=== PATIENT | male | born 1985 | race Caucasian/White ===

== ENCOUNTER 2021-01-20 14:46 | Emergency (ER) | payer SELFPAY ==
--- NOTE | ~2021-01-20 | XR_ITS ---
EXAMINATION: XR FINGER, RIGHT CLINICAL INFORMATION: Status post laceration of the thumb. COMPARISON: None TECHNIQUE: Three views of the right thumb. FINDINGS: Soft tissue injury in the form of linear soft tissue defect containing air is identified at the level of the palmar surface proximal phalanx of the right thumb. No evidence of any underlying osseous or articular abnormalities or radiopaque foreign bodies present. Incidental note is made of deformity of the fifth digit, most consistent with old posttraumatic change. XR/XR finger RT min 2V IMPRESSION: Soft tissue injury involving the right thumb without any underlying osseous or articular abnormalities. No radiopaque foreign bodies. Old likely posttraumatic changes involving the fifth digit.
[2021-01-20 14:52] VITALS: BP 129/75; PULSE 81; RESP 18; TEMP 36.8; O2SAT 97; BMI 27.1
--- NOTE | 2021-01-20 15:52 | ED.WOUNDLAC ---
HPI - Wound/Laceration General Chief Complaint: Wound/Laceration Stated Complaint: finger lac Time Seen by Provider: 01/20/21 15:06 Source: patient and family Mode of arrival: ambulatory Limitations: no limitations History of Present Illness HPI narrative: 35-year-old male presenting to the ED with a laceration to his right thumb at the proximal aspect when he was cutting an apple 30 minutes prior to arrival. He reports he is up-to-date on tetanus. He denies any paresthesias or any other symptoms complaints or concerns at this time. 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) Extremity Location: left: hand (Thumb at the proximal aspect) Place: home Patient tetanus UTD: Yes Context: accidental Associated symptoms: unable to move injured part Related Data Home Medications Medication Instructions Recorded Confirmed clotrimazole-betamethasone 1 TOPICAL 01/16/20 %-0.05 % lotion fluocinonide 0.05 % topical cream 1 applic TOPICAL BID 01/16/20 prednisone 10 mg tablet mg PO 01/16/20 Previous Rx's Medication Instructions Recorded cephalexin 500 mg capsule 500 mg PO Q6H 10 Days #40 cap 01/20/21 Allergies Allergy/AdvReac Type Severity Reaction Status Date / Time No Known Allergies Allergy Verified 01/16/20 08:55 [No Known Allergies*] Review of Systems Review of Systems: Constitutional : No Fever, No Chills, Cardiovascular : No Chest Pain, No SOB Respiratory : No Dyspnea Gastrointestinal : No abdominal pain Musculoskeletal : No Joint Swelling Skin : positive skin laceration, No Foreign bodies, No rash, No surrounding erythema Neuro : No Weakness, No Numbness/tingling Psych : No SI/HI/thoughts of self injury Yes all other systems are reviewed and are negative [facility] Past Medical History Attestation statement: The following information was validated with the patient. Surgical History No pertinent past surgical history Family History Family History Father No problems noted. Mother No problems noted. Social History Social History Advance Directives: No Advance Directives Information Provided: No Physical Exam Vital Signs: Vital Signs: Last Vital Signs Temp 98.2 F 01/20/21 14:52 Pulse 81 01/20/21 14:52 Resp 18 01/20/21 14:52 BP 129/75 01/20/21 14:52 Pulse Ox 97 01/20/21 14:52 Body Mass Index 27.1 vital signs have been reviewed as normal and appeared to be correct. Blood pressure normal Heart rate normal. Respiration rate normal. Temperature normal. Oxygen saturation normal. Appearance: Alert. Oriented X3. No acute distress. Head: Normal external exam. Normocephalic. Atraumatic. Eyes: PERRLA. EOMI. Conjunctiva and sclera normal. Eyelids normal. ENT: Pharynx normal. Uvula midline. Moist mucous membranes. Neck: Normal inspection. Neck supple. FROM. CVS: Normal heart rate and rhythm. Respiratory: No respiratory distress. Painless inspiration. Skin: Skin warm and dry. Normal skin color. Normal skin turgor. Patient with a intermediate laceration noted to left hand thumb at the proximal aspect. No additional rashes/lesions/lacerations noted. Extremities: Patient unable to flex the distal aspect of the thumb therefore I believe the patient has a tendon laceration. No obvious deformities noted. No bony tenderness is noted. Otherwise all other Extremities exhibit normal range of motion and nontender. Neuro: Oriented X 3. No motor deficit. No sensory deficit. Reflexes normal. Normal steady gait. No focal neuro deficits noted. Vascular: + radial pulses. Normal cap refill. No cyanosis noted to upper extremity nails. Course Course Course Narrative: 35-year-old male presenting to the ED with a laceration to his right thumb at the proximal aspect when he was cutting an apple 30 minutes prior to arrival. He reports he is up-to-date on tetanus. He denies any paresthesias or any other symptoms complaints or concerns at this time. On exam patient has a intermediate 1 cm laceration to the proximal aspect of the left thumb unable to move the distal aspect of the left thumb therefore I believe the patient has attendant laceration. Otherwise no bony tenderness or foreign bodies noted. No obvious deformities noted. Will obtain x-ray and place loose sutures and consult with Orthopedics so the patient can follow-up with orthopedic. Patient understands agrees with this plan. Reevaluation(s) Reevaluation #1: - patient is now status post laceration repair with [address] Patient tolerated procedure well. No complications. I consulted with orthopedic ELIZABETH Olivo and she reported to clean and suture with a right could and to have him follow up with her in the office tomorrow therefore explained this to the patient he reports he will follow up tomorrow with orthopedic and he will return if any new or worsening symptoms. Patient understands agrees with this plan. Time: 16:58 MDM - Wound/Laceration Medical Records Attestation: I reviewed the patient's medical records. Imaging Data Left thumb x-ray: Attestation: I personally reviewed and interpreted this imaging study as follows: Radiologist's impression: FINDINGS: Soft tissue injury in the form of linear soft tissue defect containing air is identified at the level of the palmar surface proximal phalanx of the right thumb. No evidence of any underlying osseous or articular abnormalities or radiopaque foreign bodies present. Incidental note is made of deformity of the fifth digit, most consistent with old posttraumatic change. XR/XR finger RT min 2V IMPRESSION: Soft tissue injury involving the right thumb without any underlying osseous or articular abnormalities. No radiopaque foreign bodies. Old likely posttraumatic changes involving the fifth digit. Discharge Plan Discharge Clinical Impression: Laceration, Laceration of thumb, left, with tendon involvement Patient Disposition: Home, Self-Care Instructions: Finger Laceration (ED), Tendon Laceration (ED) Prescriptions: New cephalexin 500 mg capsule 500 mg PO Q6H 10 Days Qty: 40 RF: 0 Referrals: Latrice Jamison MD [Physician] - 1 day (You should follow up tomorrow please call tomorrow morning) Caryn Vang NP [Primary Care Provider] - 2 days Stand Alone Forms: Work/School Release Print Language: Upper Sorbian
[2021-01-20] MEDS: Lidocaine HCl 1 % MPF 5 ML VIAL SUBCUT (17:19)
== END 2021-01-20 17:23 | disposition home or self-care (01) ==
PROVIDERS: Emergency Provider Emergency Medicine; PCP Hospitalist
DX: S61.011A Laceration without foreign body of right thumb without damage to nail, initial encounter (principal); M67.843 Other specified disorders of tendon, right hand; W26.0XXA Contact with knife, initial encounter; Y93.89 Activity, other specified; Y92.9 Unspecified place or not applicable; Y99.9 Unspecified external cause status
CPT/HCPCS: 12001; 73140; 99283; 99284

== ENCOUNTER → 2021-01-21 13:09 | Outpatient (BNVA) | payer SELFPAY | PROVIDERS: Visit Provider Physician Assistant | DX: S61.011A Laceration without foreign body of right thumb without damage to nail, initial encounter (principal) | CPT/HCPCS: 99202 ==

== ENCOUNTER 2021-01-24 08:25 | Day surgery (SDC) | payer SELFPAY ==
--- NOTE | 2021-01-23 15:02 | HO.ANESPROP2 ---
Documented by User: Mora Morocho NP 02/05/21 14:31 HPI - Anesthesia Eval Consult details Narrative: 35yo M for Right Flexor Tendon Repair of thumb PMFSH Active Problems Active Problems: All Active Problems (Updated 01/21/21 @ 14:02 by Pallavi Chisholm PA-C) Laceration of thumb, right, with tendon involvement (Acute) Infertility counseling (Acute) Past Medical History Medical History No pertinent past medical history Family History Family History Father No problems noted. Mother No problems noted. 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 Meds Allergies Allergy/AdvReac Type Severity Reaction Status Date / Time No Known Allergies Allergy Verified 01/21/21 13:16 [No Known Allergies*] Home Medications Medication Instructions Recorded Confirmed Last Taken Type clotrimazole-betamethasone 1 TOPICAL 01/16/20 Unknown History %-0.05 % lotion fluocinonide 0.05 % topical cream 1 applic TOPICAL BID 01/16/20 Unknown History prednisone 10 mg tablet mg PO 01/16/20 Unknown History Exam Exam Date and Time: January 23, 2021 1502 Assessment and Plan Assessment Anesthesia Assessment: Chart Reviewed Documented by User: Donnie Dewitt MD 02/15/21 11:55 PMFSH Past Medical History Medical History No pertinent past medical history Family History Family History Father No problems noted. Mother No problems noted. 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 Meds Allergies Allergy/AdvReac Type Severity Reaction Status Date / Time No Known Allergies Allergy Verified 01/21/21 13:16 [No Known Allergies*] Home Medications Medication Instructions Recorded Confirmed Last Taken Type clotrimazole-betamethasone 1 TOPICAL 01/16/20 Unknown History %-0.05 % lotion fluocinonide 0.05 % topical cream 1 applic TOPICAL BID 01/16/20 Unknown History prednisone 10 mg tablet mg PO 01/16/20 Unknown History Assessment and Plan Assessment Anesthesia Assessment: Anesthesia Plan Discussed Final Anesthetic Review Family History of Problems with Anesthesia: No History of Problems with Anesthesia: No NPO: Yes ASA Class: I Final Preanesthetic Review: No Changes in Pt Med Stat, Meds/Allgs Chart Reviewed, Consent Obtained/Reviewed and Anes Risks/Benef Reviewed Patient Risk: Low Procedure Risk: Low Anesthetic Plan Anesthetic Plan: GA Disposition: Standard PACU
[2021-01-24] VITALS (8 sets, daily range): BP systolic 117–135; BP diastolic 64–88; PULSE 59–85; RESP 16–20; TEMP 36.2–37.1; O2SAT 95–98; BMI 27.1
--- NOTE | 2021-01-24 08:52 | MHC.SHP ---
Pre-Procedural Eval Section A Date of Service: 01/24/21 The patient is an INPATIENT: No Changes since office visit: No Cold of Flu in the past 2 weeks, No New Medical Problems, No Changes in Medication and No Patient answered all questions The History & Physical has been completed within 30 days and I have reviewed it.: Yes Section B Chief Complaint: laceration of flexor tendon, right thumb Allergies: Allergies Allergy/AdvReac Type Severity Reaction Status Date / Time No Known Allergies Allergy Verified 01/21/21 13:16 [No Known Allergies*] Exam Exam Comment: Right thumb laceration and FPL tendon laceration Plan I have reviewed the history and physical and performed a pertinent physical examination on my patient. No changes have occurred unless specified. Clarification: Right Thumb flexor tendon repair
--- NOTE | 2021-01-24 08:53 | P.OP_ITS ---
Operative Note Operative Note Date of Service: 01/24/21 Narrative: Operative Note Narrative: Preop diagnosis: 1.. Right thumb flexor pollicis longus tendon laceration Postop diagnosis: Same Procedure: 1. Right thumb flexor pollicis longus tendon repair Surgeon: Latrice Jamison MD Anesthesia: Mac plus regional block Findings: FPL tendon laceration just proximal to the oblique taylor. The proximal and of the FPL tendon was retracted to beneath the thenar mass. Implants: none Tourniquet time: Seventy minutes EBL: 5.0 ml Specimen: none Drains: None Complications: None Disposition: Brought to the recovery room in stable condition Plan: Follow-up in 10-14 days for wound check, suture removal and placement in a dorsal blocking splint. Same day appointment with OT hand therapy to be made a custom thermoplastic dorsal blocking splint, and to begin flexor tendon protocol. Indications: The patient is a 35 year old man with a right thumb FPL tendon lacerations sustained in the kitchen. . The risks and benefits of operative t reatment, including but not limited to risk of damage to blood vessels, nerves, tendons, infection, recurrence, persistent pain or numbness, incomplete resolution of preoperative symptoms, or need for further surgery were discussed with the patient and they wished to proceed with surgery. Procedure: Once consent was obtained patient was brought back to the operating suite and placed in the operating table in a supine position. . Perioperative antibiotics and anesthesia was administered by the anesthesia team. A tourniquet was applied to the proximal aspect of the Right upper extremity and the limb was prepped and draped in a standard surgical fashion. The limb was elevated exsanguinated with Esmarch bandage and the tourniquet inflated to 250 mm of mercury for a total tourniquet time of 70 minutes. the sutures were removed from the transverse laceration just proximal to the IP joint of the patient's right thumb. The ulnar aspect of the laceration was extended distally to the IP joint and then obliquely over the distal phalanx. From the radial aspect of the laceration I then extended proximally over the A1 taylor using a Rhea type incision. I then dissected down to the level of the flexor tendon sheath using tenotomy scissors. Care was taken to protect the neurovascular structures. The laceration through the tendon sheath was noted proximal to the oblique taylor. The distal aspect of the FPL tendon was noted distal to the oblique taylor. Proximally, the proximal end of the FPL tendon was withdrawn from the FPL tendon sheath within the thenar mass using a small hemostat. It was then drawn distally. I then placed some 4-0 nylon suture in this proximal and of the tendon. I then used a loop of 4-0 nylon suture that had been withdrawn 1st beneath the FPL tendon sheath just distal to the A1 taylor and jay the FPL tendonthrough this portion of the tendon sheath. Similarly the FPL tendon was then drawn distally beneath the oblique taylor. This was held in place with a single 25 gauge needle. I then repaired our FPL tendon laceration using 3-0 Ethibond suture and a 4 core suture technique. This was then reinforced with some 6 0 Prolene suture. I was very satisfied with our FPL tendon repair. At this point the tourniquet was deflated and hemostasis obtained with a brief period of local pressure. The wound was copiously irrigated with normal saline. The skin edges were reapproximated with 5-0 nylon suture. The wound was infiltrated with some 1% lidocaine with epinephrine for postop pain control and a sterile dressing and Dorsal thumb spica splint were applied holding the wrist and thumb in some flexion. The patient appears to have tolerated the procedure well and with no complications. All digits were well vascularized c onclusion of the case.
[2021-01-24] MEDS: Lactated Ringers 1,000 ML 100 ML IVCONT (09:09)
[2021-01-24] MEDS: ceFAZolin Sodium/Dextrose,Iso 2 GM/50 ML PIGGYBACK IV (10:24)
== END 2021-01-24 14:25 | disposition home or self-care (01) ==
PROVIDERS: PCP Hospitalist; Visit Provider Orthopaedic Surgery
PROC: (CPT 26350; principal; 2021-01-24 10:00)
DX: S56.021A Laceration of flexor muscle, fascia and tendon of right thumb at forearm level, initial encounter (principal); W26.0XXA Contact with knife, initial encounter; Y93.G9 Activity, other involving cooking and grilling; Y92.9 Unspecified place or not applicable; Y99.8 Other external cause status
CPT/HCPCS: 26350; J0690; J1100; J1170; J2250; J2405; J3010

== ENCOUNTER → 2021-02-05 08:45 | Outpatient (BNVA) | payer OTHER, SELFPAY | PROVIDERS: PCP Hospitalist; Visit Provider Orthopaedic Surgery | DX: S61.011D Laceration without foreign body of right thumb without damage to nail, subsequent encounter (principal) | CPT/HCPCS: 99212 ==

== ENCOUNTER 2021-02-27 10:00 | Outpatient (RCR) | payer OTHER, SELFPAY | END 2021-02-27 14:00 | disposition home or self-care (01) | LOC: HO.OT 10:00 | PROVIDERS: Visit Provider Orthopaedic Surgery | DX: S61.011D Laceration without foreign body of right thumb without damage to nail, subsequent encounter (principal) | CPT/HCPCS: 29125; 97110; 97140; 97165; 97760 ==

== ENCOUNTER → 2021-03-05 09:44 | Outpatient (BNVA) | payer OTHER, SELFPAY | PROVIDERS: PCP Hospitalist; Visit Provider Orthopaedic Surgery | DX: S61.011D Laceration without foreign body of right thumb without damage to nail, subsequent encounter (principal); S66.811D Strain of other specified muscles, fascia and tendons at wrist and hand level, right hand, subsequent encounter | CPT/HCPCS: 99212 ==

== ENCOUNTER 2021-03-07 08:02 | Day surgery (SDC) | payer OTHER, SELFPAY ==
--- NOTE | 2021-03-06 09:00 | HO.ANESPROP2 ---
Documented by User: Mora Morocho NP 03/06/21 09:01 HPI - Anesthesia Eval Consult details Narrative: 35yo M for Right Thumb FPL Tendon Repair vs reconstruction s/p tendon repair 01/2021 with GA-LMA 4 PMFSH Active Problems Active Problems: All Active Problems (Updated 03/05/21 @ 16:40 by Latrice Jamison MD) Rupture of flexor tendon of right hand (Acute) Laceration of thumb, right, with tendon involvement (Acute) Infertility counseling (Acute) Past Medical History Medical History (Updated 03/05/21 @ 16:40 by Latrice Jamison MD) No pertinent past medical history Family History Family History Father No problems noted. Mother No problems noted. 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 Meds Allergies Allergy/AdvReac Type Severity Reaction Status Date / Time No Known Allergies Allergy Verified 03/05/21 10:07 [No Known Allergies*] Home Medications Medication Instructions Recorded Confirmed Last Taken Type clotrimazole-betamethasone 1 TOPICAL 01/16/20 Unknown History %-0.05 % lotion fluocinonide 0.05 % topical cream 1 applic TOPICAL BID 01/16/20 Unknown History prednisone 10 mg tablet mg PO 01/16/20 Unknown History Exam Exam Date and Time: March 06, 2021 0900 Assessment and Plan Assessment Anesthesia Assessment: Chart Reviewed Final Anesthetic Review Family History of Problems with Anesthesia: No History of Problems with Anesthesia: No Documented by User: Jeffrey Reyes MD 03/07/21 09:39 PMFSH Past Medical History Medical History (Updated 03/05/21 @ 16:40 by Latrice Jamison MD) No pertinent past medical history Family History Family History Father No problems noted. Mother No problems noted. 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 Meds Allergies Allergy/AdvReac Type Severity Reaction Status Date / Time No Known Allergies Allergy Verified 03/05/21 10:07 [No Known Allergies*] Home Medications Medication Instructions Recorded Confirmed Last Taken Type clotrimazole-betamethasone 1 TOPICAL 01/16/20 Unknown History %-0.05 % lotion fluocinonide 0.05 % topical cream 1 applic TOPICAL BID 01/16/20 Unknown History prednisone 10 mg tablet mg PO 01/16/20 Unknown History Exam Airway Mallampati Class: II TM Dist: >3cm Neck ROM: Full Assessment and Plan Final Anesthetic Review ASA Class: I Final Preanesthetic Review: No Changes in Pt Med Stat and Consent Obtained/Reviewed Patient Risk: Low Procedure Risk: Low Anesthetic Plan Anesthetic Plan: GA Disposition: Standard PACU
[2021-03-07] VITALS (11 sets, daily range): BP systolic 120–173; BP diastolic 75–98; PULSE 73–113; RESP 16–18; TEMP 36.5–37.3; O2SAT 95–100; BMI 27.1
--- NOTE | ~2021-03-07 | FL_ITS ---
EXAMINATION: XR FLUOROSCOPY WITH IMAGES CLINICAL INFORMATION: Thumb tendon repair with K wire COMPARISON: 01/20/2021 TECHNIQUE: Fluoroscopy performed by Dr. Jamison. Fluoroscopy time: 24.6 seconds DAP: 68333.1 [id number] Images: 2 FINDINGS: There is a K wire placed in the first digit spanning through the distal phalanx and across the interphalangeal joint to the head of the proximal phalanx. FL/FL guidance in OR IMPRESSION: Fluoroscopic guidance for K wire placement across the first digit interphalangeal joint. Please refer to operative report for further information.
[2021-03-07] MEDS: Lactated Ringers 1,000 ML 100 ML IVCONT (08:49)
--- NOTE | 2021-03-07 08:57 | P.OP_ITS ---
Operative Note Operative Note Date of Service: 03/07/21 Narrative: Operative Note Narrative: Preop diagnosis: 1. Right thumb flexor pollicis longus tendon rupture, four-weeks status post tendon laceration repair Postop diagnosis: Same Procedure: 1. Right thumb flexor pollicis longus tendon tenolysis 2. Right thumb carpal tunnel release 3. Right thumb flexor pollicis longus tenodesis with percutaneous pinning of the IP joint Surgeon: Latrice Jamison MD Anesthesia: General . Findings: Postoperative rupture of FPL tendon repair. Significant scarring of distal aspect of FPL tendon within the flexor tendon sheath. Attempts to bring the proximal aspect of the FPL tendon out to length were not successful, and ultimately there was A 3 cm gap between the proximal and distal aspect of the FPL tendon. Implants: 0.0445 K-wire x1 Tourniquet time: 75 minutes EBL: 5.0 ml Specimen: None Drains: None Complications: None Disposition: Brought to the recovery room in stable condition Plan: Follow-up in 10-14 days for wound check, suture removal and placement in a short-arm thumb spica cast Anticipate K-wire removal at 6 weeks postoperatively Indications: The patient is a 35 year old man with a rupture of his right thumb FPL tendon a little over 4 weeks post primary repair of an initial FPL tendon laceration . The risks and benefits of operative treatment, including but not limited to risk of damage to blood vessels, nerves, tendons, infection, recurrence, persistent pain or numbness, incomplete resolution of preoperative symptoms, or need for further surgery were discussed with the patient and they wished to proceed with surgery. Procedure: Once consent was obtained patient was brought back to the operating suite and placed in the operating table in a supine position. . Perioperative antibiotics and anesthesia was administered by the anesthesia team. A tourniquet was applied to the proximal aspect of the right upper extremity and the limb was prepped and draped in a standard surgical fashion. The limb was elevated exsanguinated with Esmarch bandage and the tourniquet inflated to 250 mm of mercury for a total tourniquet time of 75 minutes. I made carlyle tadeo in sitting over the volar aspect of the patient's right thumb in line with his previous incisions extending from the distal phalanx to the A1 taylor area. The incision was made through the skin to the subcutaneous tissues using a 15. Blade. I then carefully dissected down to the level of the flexor tendon sheath. There was significant scarring between the skin and flexor tendon sheath. Care was taken to protect the neurovascular structures. The FPL tendon was found to be ruptured proximal to oblique taylor. Interestingly it looks like the tendon actually tore not straight across at the laceration site but also longitudinally as deeper fibers of the FPL tendon remained intact to the distal fragment extending proximally and proximal to the A1 taylor. There was significant scarring of this distal aspect of the FPL tendon with an the tendon sheath. Tenolysis was performed freeing up this aspect of the tendon using tenotomy scissors and a 15. Blade. I identified the flexor tendon sheath going proximally and attempted to grasp the proximal aspect of the tendon using both Bree tendon Passer and a mosquito snap. These were unsuccessful. I then made a slightly extended carpal tunnel incision over the carpal tunnel using a 15. Blade through the skin to the subcutaneous tissues. I then extended sharply through the palmar spastic a to the level of the wrist carpal ligament. The transverse carpal ligament was then opened sharply 1st using 15. Blade then using tenotomy scissors under direct visualization. The median nerve was identified and protected. The FPL tendon was seen passing through the radial aspect of the carpal tunnel. It had fairly fresh looking hematoma within the tenosynovium. The FPL tendon was withdrawn proximally into the carpal tunnel. Using a Bree tendon Passer I then passed a loop of 4-0 nylon suture through the flexor tendon sheath from the A1 taylor area of the thumb proximally to the carpal tunnel. I then grasped the distal and of the proximal portion of the FPL tendon with some 3-0 Ethibond suture. The 3-0 Ethibond suture was then passed through the loop of 4-0 nylon and showed old from proximal to distal through the FPL tendon sheath to the A1 taylor area. This then allowed me to try to draw the proximal aspect of the FPL tendon distally to the thumb. Ultimately, there was not enough length and elasticity in the proximal aspect of the FPL tendon and we were left with a 3 cm gap between the proximal and distal ends. It should be noted that the distal 5 cm of the proximal and of the tendon was noticeably thickened and fibrotic compared with the more healthy appearing more proximal aspect of the tendon. Considering our options, I felt that a bridge graft using palmaris longus tendon, while an option, was very likely to get scar down within this already injured flexor t endon sheath. I had already talked to the patient about the benefits of an arthrodesis with the IP joint in some flexion. I felt that I could bring the IP joint into some flexion with a tenolysis of the distal aspect of the FPL tendon. I thus proceeded with our tenolysis by securing the distal aspect of the FPL tendon to the deep aspect of the flexor tendon sheath and the volar plate using some 3-0 Ethibond suture. This brought the IP joint of the thumb down to about 40? of flexion, where the tip of the thumb easily met the tips of the index middle and ring fingers. I was very pleased with the tenodesis. At this point the wounds were copiously irrigated with normal saline. The tourniquet was deflated and hemostasis obtained with a brief period of local pressure.? The wound was copiously irrigated with normal saline.? The? skin edges were reapproximated with 5-0 nylon suture.? A 0.045 K-wire was then advanced retrograde through the tip of the distal phalanx proximally across the IP joint of the thumb and into the middle phalanx. This was done with the IP joint flex to about 40-45 degrees. Once satisfied with the placement of this K- wire under multiple fluoroscopic images the pin was bent cut short and had a pin cap applied. The wounds were infiltrated with some 1% lidocaine with epinephrine for postop pain control and a sterile dressing? and? Dorsal thumb spica splint were applied holding the wrist and thumb in some flexion. The patient appears to have tolerated the procedure well and with no complications.? All digits were well vascularized conclusion of the case.
--- NOTE | 2021-03-07 08:57 | MHC.SHP ---
Pre-Procedural Eval Section A Date of Service: 03/07/21 The patient is an INPATIENT: No Changes since office visit: No Cold of Flu in the past 2 weeks, No New Medical Problems, No Changes in Medication and No Patient answered all questions The History & Physical has been completed within 30 days and I have reviewed it.: Yes Section B Chief Complaint: flexor tendon laceration/rupture Allergies: Allergies Allergy/AdvReac Type Severity Reaction Status Date / Time No Known Allergies Allergy Verified 03/05/21 10:07 [No Known Allergies*] Plan I have reviewed the history and physical and performed a pertinent physical examination on my patient. No changes have occurred unless specified.
[2021-03-07] MEDS: fentaNYL citrate/PF 100 MCG/2 ML VIAL 50 MCG IVPUSH (13:20)
[2021-03-07] MEDS: oxyCODONE HCl Immed Release 5 MG TABLET PO (13:22)
== END 2021-03-07 14:12 | disposition home or self-care (01) ==
PROVIDERS: PCP Hospitalist; Visit Provider Orthopaedic Surgery
PROC: (CPT 26350; principal; 2021-03-07 09:50)
DX: S66.011A Strain of long flexor muscle, fascia and tendon of right thumb at wrist and hand level, initial encounter (principal); Z98.890 Other specified postprocedural states; Y93.89 Activity, other specified; Y92.9 Unspecified place or not applicable; Y99.8 Other external cause status
CPT/HCPCS: 26350; 26471; 64721; 26860; J0690; J1100; J2250; J2405; J3010

== ENCOUNTER → 2021-03-20 13:07 | Outpatient (BNVA) | payer OTHER, SELFPAY | PROVIDERS: PCP Hospitalist; Visit Provider Physician Assistant | DX: S66.811D Strain of other specified muscles, fascia and tendons at wrist and hand level, right hand, subsequent encounter (principal); S61.011D Laceration without foreign body of right thumb without damage to nail, subsequent encounter | CPT/HCPCS: 29075; 99212 ==

== ENCOUNTER → 2021-04-17 12:21 | Outpatient (BNVA) | payer OTHER, SELFPAY | PROVIDERS: PCP Hospitalist; Visit Provider Physician Assistant | DX: S66.811D Strain of other specified muscles, fascia and tendons at wrist and hand level, right hand, subsequent encounter (principal) | CPT/HCPCS: 99212 ==

== ENCOUNTER → 2021-05-29 10:38 | Outpatient (BNVA) | payer OTHER, SELFPAY | PROVIDERS: Visit Provider Orthopaedic Surgery | DX: S61.011D Laceration without foreign body of right thumb without damage to nail, subsequent encounter (principal); S66.811D Strain of other specified muscles, fascia and tendons at wrist and hand level, right hand, subsequent encounter | CPT/HCPCS: 99212 ==